=== PATIENT | female | born 2000 | race African-American/Black ===

== ENCOUNTER 2020-03-18 11:37 | Inpatient (IN) ==
[2020-03-18 12:58] LABS: Basophils % 0.4 % (0.0-0.8); Eosinophils # 0.3 10*3/uL (0.0-0.87); Eosinophils % 2.7 % (0.00-10.9); Hematocrit 30.7 VOL% (35.7-47.0); Hemoglobin 9.4 GM/DL (12.0-16.0); Immature Granulocytes % 0.9 %; Lymphocytes # 1.5 10*3/uL (1.4-4.0); Lymphocytes % 13.5 % (21.3-54.2); Mean Corpuscular HGB Conc 30.6 GM/DL (32-36); Mean Corpuscular Volume 87.2 FL (87-102); Monocytes % 6.9 % (1.7-12.7); NRBC # 0.04 10*3/uL; Neutrophils % 75.6 % (38.7-73.9); Platelet Count 312 T/CUMM (130-400); Red Blood Count 3.52 MC/CUMM (3.8-5.5); Red Cell Distribution Width 15.1 % (9.3-17.3); White Blood Count 10.9 T/CUMM (4-12)
[2020-03-18 13:03] VITALS: BP 158/93
[2020-03-18 13:07] LABS: Apearance,Urine CLEAR (Clear); Bacteria,Urine Occasional /HPF (Few); Bilirubin,Urine Negative (Negative); Blood, Urine Negative (Negative); Glucose,Urine (UA) Negative (Negative); Ketones,Urine Negative (Negative); Mucus,Urine Occasional /LPF (Occasional); Nitrite,Urine Negative (Negative); Protein,Urine 100 MG/DL; RBC,Urine <1 /HPF (0-4); Squamous Epithelial Cell,Urine Occasional /HPF (0-10); Urine Color Yellow (Yellow); Urine Specific Gravity 1.015 (1.001-1.035); Urine Urobilinogen < 2.0 EU/DL (0.2-1.0); WBC,Urine 1 /HPF (0-6)
[2020-03-18 13:15] LABS: INR 0.9; PT Patient Result 9.8 SECS (9.8-11.9); Partial Thromboplastin Time 29.7 SECS (23.9-33.8)
[2020-03-18 13:17] LABS: Alanine Aminotransferase 15 U/L (13-56); Albumin 2.7 G/DL (3.4-5.0); Alkaline Phosphatase 113 U/L (45-117); Aspartate Amino Transferase 14 U/L (0-37); Bilirubin,Direct < 0.050 MG/DL (0.0-0.20); Bilirubin,Total < 0.39 MG/DL (0.2-1.0); Blood Urea Nitrogen 8 MG/DL (7-18); Calcium 8.6 MG/DL (8.5-10.1); Estimated Glom Filtration Rate 171 ML/MIN; Glucose 64 MG/DL (74-106); Osmolality,Calculated 274.4 MOS/KG (273-304); Total Protein 6.9 G/DL (6.4-8.3); Uric Acid 4.5 MG/DL (2.6-6.0)
[2020-03-18] MEDS ORDERED: hydrALAZINE 20 MG/1 ML VIAL ONE (13:26)
[2020-03-18] MEDS ORDERED: hydrALAZINE 20 MG/1 ML VIAL IV ONE ×2 (13:30→13:57)
[2020-03-18] MEDS ORDERED: LACTATED RINGERS 1,000 ML IV ONE (13:32)
[2020-03-18] MEDS ORDERED: LABETALOL 200 MG TABLET PO ONE (15:31)
[2020-03-18] MEDS ORDERED: LACTATED RINGERS 500 ML IV PRN (19:45)
[2020-03-18] MEDS ORDERED: ACETAMINOPHEN 325 MG TABLET PO PRN (19:45)
[2020-03-18] MEDS ORDERED: ONDANSETRON 4 MG/2 ML VIAL IV PRN (19:45)
[2020-03-18] MEDS ORDERED: LACTATED RINGERS 1,000 ML IV SCH (20:00)
[2020-03-18] MEDS: LABETALOL 100 MG TABLET PO SCH (20:40)
[2020-03-19] MEDS ORDERED: MAGNESIUM SULFATE 1 GM/2 ML VIAL IM ONE (00:33)
[2020-03-19] MEDS ORDERED: MAGNESIUM SULF RIDER 100 ML IV ONE (00:33)
[2020-03-19] MEDS: hydrALAZINE 20 MG/1 ML VIAL IV PRN ×6 (00:47→15:16)
[2020-03-19] MEDS ORDERED: MAGNESIUM SULF DRIP 40 GM/1,000 ML ML IV SCH (01:00)
[2020-03-19] MEDS: MAGNESIUM SULF DRIP 40 GM/1,000 ML ML IV SCH ×2 (01:06→22:32)
[2020-03-19 03:52] LABS: Apearance,Urine CLEAR (Clear); Bacteria,Urine Occasional /HPF (Few); Bilirubin,Urine Negative (Negative); Blood, Urine Negative (Negative); Glucose,Urine (UA) Negative (Negative); Ketones,Urine 5 mg/dL (Negative); Mucus,Urine Many /LPF (Occasional); Nitrite,Urine Negative (Negative); Protein,Urine 100 MG/DL; RBC,Urine 1 /HPF (0-4); Urine Color Yellow (Yellow); Urine Specific Gravity 1.019 (1.001-1.035); Urine Urobilinogen < 2.0 EU/DL (0.2-1.0); WBC,Urine 1 /HPF (0-6)
[2020-03-19] MEDS ORDERED: CITRIC ACID/SODIUM CITRATE 30 ML UDCUP PO ONE (07:30)
[2020-03-19] MEDS ORDERED: FAMOTIDINE 20 MG/2 ML VIAL IV ONE (07:30)
[2020-03-19] MEDS ORDERED: ceFAZolin 3,000 MG in SYRINGE 1 EACH IV ONE (07:45)
[2020-03-19] MEDS: LABETALOL 100 MG TABLET PO SCH (08:12)
[2020-03-19] MEDS ORDERED: miSOPROStoL 200 MCG TABLET ONE (08:18)
[2020-03-19] MEDS ORDERED: CARBOPROST TROMETHAMINE 250 MCG/ML AMP IM ONE (08:19)
[2020-03-19] MEDS ORDERED: OXYTOCIN/LR 30 UNIT/1,000 ML BAG IV ONE (08:19)
[2020-03-19] MEDS ORDERED: OXYTOCIN 10 UNIT/ML VIAL IM ONE (08:19)
[2020-03-19 09:24] LABS: Cord Arterial Blood HCO3 20.4 MMOL/L
[2020-03-19 09:25] LABS: Cord Venous Blood HCO3 21.8 MMOL/L; Cord Venous Blood PCO2 41.7 MMHG; Cord Venous Blood PO2 26.7 MMHG
[2020-03-19] MEDS ORDERED: ACETAMINOPHEN 325 MG TABLET PO PRN (09:38)
[2020-03-19] MEDS ORDERED: MAGNESIUM HYDROXIDE SUSP 30 ML UDCUP PO PRN (09:38)
[2020-03-19] MEDS ORDERED: OXYTOCIN/LR 20 UNIT/1,000 ML BAG IV ONE (09:38)
[2020-03-19] MEDS ORDERED: ONDANSETRON 4 MG/2 ML VIAL IV PRN (09:38)
[2020-03-19] MEDS ORDERED: RHO(D) IMMUNE GLOBULIN 300 MCG SYRINGE IM ONE (09:38)
[2020-03-19] MEDS ORDERED: MORPHINE 10 MG/10 ML VIAL ONE (09:47)
[2020-03-19] MEDS ORDERED: fentaNYL 100 MCG/2 ML VIAL ONE (09:47)
[2020-03-19] MEDS ORDERED: PHENYLEPHRINE 1 MG/10 ML SYRINGE IV ONE (09:48)
[2020-03-19] MEDS ORDERED: BUPIVACAINE SPINAL 0.75% 2 ML AMP SPINAL ONE (09:48)
[2020-03-19] MEDS ORDERED: LACTATED RINGERS 1,000 ML IV SCH (10:00)
[2020-03-19] MEDS ORDERED: ceFAZolin 1,000 MG in SYRINGE 1 EACH IV SCH (10:00)
[2020-03-19] MEDS: HYDROmorphone 2 MG/1 ML VIAL IV PRN ×2 (11:40→15:34)
[2020-03-19] MEDS: IBUPROFEN 800 MG TABLET PO PRN (13:17)
[2020-03-19] MEDS: ceFAZolin 1,000 MG in SYRINGE 1 EACH IV SCH (16:31)
[2020-03-19] MEDS: DOCUSATE SODIUM 100 MG CAPSULE PO SCH (21:04)
[2020-03-19] MEDS: FUROSEMIDE 40 MG/4 ML VIAL IV SCH (21:28)
[2020-03-19] MEDS ORDERED: MAGNESIUM SULF DRIP 40 GM/1,000 ML ML IV ONE (22:27)
[2020-03-20] MEDS: ceFAZolin 1,000 MG in SYRINGE 1 EACH IV SCH (00:44)
[2020-03-20] MEDS: FUROSEMIDE 40 MG/4 ML VIAL IV SCH ×2 (03:36→09:28)
[2020-03-20] MEDS: IBUPROFEN 800 MG TABLET PO PRN ×2 (06:10→15:22)
[2020-03-20 06:19] LABS: Basophils % 0.2 % (0.0-0.8); Eosinophils # 0.2 10*3/uL (0.0-0.87); Eosinophils % 1.4 % (0.00-10.9); Hematocrit 30.8 VOL% (35.7-47.0); Hemoglobin 9.6 GM/DL (12.0-16.0); Immature Granulocytes % 0.5 %; Immature Granulocytes Absolute 0.06 #; Lymphocytes # 1.4 10*3/uL (1.4-4.0); Lymphocytes % 10.9 % (21.3-54.2); Mean Corpuscular HGB Conc 31.2 GM/DL (32-36); Mean Corpuscular Volume 85.3 FL (87-102); Mean Platelet Volume 10.3 FL (9.6-12.0); Monocytes % 5.6 % (1.7-12.7); Neutrophils % 81.4 % (38.7-73.9); Platelet Count 318 T/CUMM (130-400); Red Blood Count 3.61 MC/CUMM (3.8-5.5); Red Cell Distribution Width 15.6 % (9.3-17.3); White Blood Count 12.6 T/CUMM (4-12)
[2020-03-20 07:57] LABS: Alanine Aminotransferase 19 U/L (13-56); Albumin 2.5 G/DL (3.4-5.0); Alkaline Phosphatase 121 U/L (45-117); Aspartate Amino Transferase 17 U/L (0-37); Bilirubin,Total < 0.39 MG/DL (0.2-1.0); Blood Urea Nitrogen 4 MG/DL (7-18); Calcium 7.3 MG/DL (8.5-10.1); Estimated Glom Filtration Rate 163 ML/MIN; Glucose 85 MG/DL (74-106); Osmolality,Calculated 265.1 MOS/KG (273-304)
[2020-03-20] MEDS: MULTIVITAMIN (PRENATAL) TABLET PO SCH (09:27)
[2020-03-20] MEDS: SIMETHICONE CHEW 80 MG TABLET PO PRN (09:27)
[2020-03-20] MEDS: DOCUSATE SODIUM 100 MG CAPSULE PO SCH ×2 (09:27→21:03)
[2020-03-21] MEDS: SIMETHICONE CHEW 80 MG TABLET PO PRN ×2 (00:07→09:13)
[2020-03-21] MEDS: IBUPROFEN 800 MG TABLET PO PRN (03:53)
[2020-03-21] MEDS: MULTIVITAMIN (PRENATAL) TABLET PO SCH (09:13)
[2020-03-21] MEDS: DOCUSATE SODIUM 100 MG CAPSULE PO SCH (09:14)
[2020-03-21] MEDS ORDERED: DIPH/TET/ACEL PERT BOOSTER VACCINE 0.5 ML VIAL IM ONE (11:05)
== END 2020-03-21 13:10 | disposition home or self-care (01) | DRG 540 ==
LOC: N.LDOUT 11:37 → N.LD 11:40
PROVIDERS: ADMIT Obstetrics & Gynecology; ATTEND Obstetrics & Gynecology
PROC: LDCSECT (ICD-10-PCS; 2020-03-19 06:00)